=== PATIENT | female | born 1995 | race African-American/Black ===

== ENCOUNTER 2016-08-21 15:20 | Emergency (ER) | payer OTHER ==
[2016-08-21 15:39] VITALS: TEMP 98.1; BMI 28.8
--- NOTE | 2016-08-21 15:42 | PDOC ---
Rapid Medical Evaluation Chief Complaint: Cold Symptoms Time Seen by Provider: 08/21/16 15:36 Medical Evaluation: Allergies Allergy/AdvReac Type Severity Reaction Status Date / Time No Known Allergies Allergy Verified 08/21/16 15:35 Vital Signs Temp Pulse Resp BP Pulse Ox 98.1 F 99 H 18 130/80 100 08/21/16 15:36 08/21/16 15:36 08/21/16 15:36 08/21/16 15:36 08/21/16 15:36 08/21/16 15:40 Brief in person evaluation done in Triage CC light headiness and dizziness Pe mild elevation BP no labs
[2016-08-21] MEDS ORDERED: IBUPROFEN 400 MG TABLET (FP) PO ONE ×2 (16:03→16:12)
--- NOTE | 2016-08-21 16:08 | PDOC ---
[id number] Timing/Duration: reports: week Severity: reports: moderate Associated Symptoms: reports: sore throat. denies: cough, earache, facial pain , fever/chills, headache <MalaySabrinaSkylar - Last Filed: 08/21/16 16:46> <Dalton Escobar - Last Filed: 08/26/16 08:25> - General Chief Complaint: Lightheaded Stated Complaint: NAUSEA, PAIN/ THROAT, TONSILS Time Seen by Provider: 08/21/16 15:36 Past History - Past Medical History Other medical history: none - Immunization History Immunization Up to Date: Yes - Psycho/Social/Smoking Cessation Hx Anxiety: No Suicidal Ideation: No Smoking Status: No Smoking History: Never smoked Have you smoked in the past 12 months: No Number of Cigarettes Smoked Daily: 0 Information on smoking cessation initiated: No Hx Alcohol Use: No Drug/Substance Use Hx: No Substance Use Type: None <MalaySabrinaSkylar - Last Filed: 08/21/16 16:46> <Dalton Escobar - Last Filed: 08/26/16 08:25> - Past Medical History Allergies/Adverse Reactions: Allergies Allergy/AdvReac Type Severity Reaction Status Date / Time No Known Allergies Allergy Verified 08/21/16 15:35 Home Medications: Ambulatory Orders Triamcinolone 0.5% Ointment [Aristocort 0.5% Ointment -] 1 applic TP BID #15 grams 06/07/15 Amoxicillin - [Amoxicillin 500mg Capsule -] 500 mg PO BID #14 capsule 08/21/16 Ibuprofen [Motrin -] 800 mg PO Q6H #20 tablet 08/21/16 Review of Systems - Review of Systems Constitutional: No: Chills, Fever HEENTM: Yes: Throat Pain. No: Ear Pain Respiratory: No: Cough ABD/GI: Yes: Nausea Neurological: Yes: Dizziness. No: Headache <MalayLita - Last Filed: 08/21/16 16:46> *Physical Exam - Vital Signs Last Vital Signs Temp Pulse Resp BP Pulse Ox 98.1 F 99 H 18 130/80 100 08/21/16 15:36 08/21/16 15:36 08/21/16 15:36 08/21/16 15:36 08/21/16 15:36 - Physical Exam General Appearance: Yes: Appropriately Dressed. No: Apparent Distress HEENT: positive: EOMI, Normal Voice, TMs Normal, Tonsillar Exudate. negative: Scleral Icterus (R), Scleral Icterus (L) Neck: positive: Supple. negative: Lymphadenopathy (R), Lymphadenopathy (L) Respiratory/Chest: positive: Lungs Clear, Normal Breath Sounds. negative: Respiratory Distress Cardiovascular: positive: Regular Rate, S1, S2 Integumentary: positive: Dry, Warm Neurologic: positive: Fully Oriented, Alert, Normal Mood/Affect <Lita Orta - Last Filed: 08/21/16 16:46> - Vital Signs Last Vital Signs Temp Pulse Resp BP Pulse Ox 98.1 F 89 18 127/70 99 08/21/16 15:36 08/21/16 17:09 08/21/16 17:09 08/21/16 17:09 08/21/16 17:09 <Dalton Escobar - Last Filed: 08/26/16 08:25> ED Treatment Course - Medications Given in the ED: ED Medications Discontinued Medications Generic Name Dose Route Start Last Admin Trade Name Freq PRN Reason Stop Dose Admin Ibuprofen 800 mg 08/21/16 16:03 08/21/16 16:15 Motrin - PO 08/21/16 16:04 800 mg ONCE ONE Administration <Dalton Escobar - Last Filed: 08/26/16 08:25> Medical Decision Making - Medical Decision Making 08/21/16 16:03 21 yo F, h/o recurrent strep, hear with dizziness, nausea and sore throat x 1 week, No f/c. Brother w/ strep at home. Pt well renate and stable w/ b/l tonsilar enlargement w/ exudates lesions, no e/o [employer]. Will tx for presumed strep 08/21/16 16:08 <Lita Orta - Last Filed: 08/21/16 16:46> - Medical Decision Making The patient was seen and evaluated in conjunction with SHIRA Phillip under my direct supervision, ancillary studies were reviewed. I agree with the plan as outlined by SHIRA Orta . <Dalton Escobar - Last Filed: 08/26/16 08:25> *DC/Admit/Observation/Transfer <Lita Orta - Last Filed: 08/21/16 16:46> <Dalton Escobar - Last Filed: 08/26/16 08:25> Diagnosis at time of Disposition: Strep pharyngitis - Discharge Dispostion Disposition: HOME Condition at time of disposition: Good - Prescriptions Prescriptions: Amoxicillin - [Amoxicillin 500mg Capsule -] 500 mg PO BID #14 capsule Ibuprofen [Motrin -] 800 mg PO Q6H #20 tablet - Referrals Referrals: Ana Maria Mcclure MD [Primary Care Provider] - - Patient Instructions Printed Discharge Instructions: Strep Throat Additional Instructions: Take medications as directed
[2016-08-21 17:13] VITALS: BP 127/70; PULSE 89
== END 2016-08-21 17:14 | disposition home or self-care (01) ==
LOC: JER 15:20
DX: J02.0 Streptococcal pharyngitis (principal); B95.4 Other streptococcus as the cause of diseases classified elsewhere
CPT/HCPCS: 84703; 99283-25